=== PATIENT | female | born 1980 | race Two or more races ===

== ENCOUNTER 2021-05-28 04:10 | Day surgery (SDC) | payer OTHER ==
[2021-05-27 17:12] VITALS: BMI 26.6
[2021-05-28] MEDS ORDERED: MIDAZOLAM HCL 2 MG/2 ML SINGLE DOSE VIAL ONE (14:38)
[2021-05-28] MEDS ORDERED: LIDOCAINE HCL/PF 2% SDV 5ML VIAL ONE (14:39)
[2021-05-28] MEDS ORDERED: KETOROLAC TROMETHAMINE 30 MG/1 ML VIAL ONE (14:39)
[2021-05-28] MEDS ORDERED: PROPOFOL 20 ML ONE ×2 (14:50)
[2021-05-28] MEDS ORDERED: ceFAZolin SODIUM 1 GM VIAL ONE (14:59)
[2021-05-28] MEDS ORDERED: ceFAZolin SODIUM 1 GM VIAL IVPB ONE (15:00)
[2021-05-28] MEDS ORDERED: IBUPROFEN 800 MG/8 ML IJ IVPB PRN (15:12)
[2021-05-28] MEDS ORDERED: ONDANSETRON 4 MG/2 ML VIAL IVPUSH PRN (15:12)
[2021-05-28] MEDS ORDERED: IBUPROFEN 600 MG TABLET (FP) PO PRN (15:12)
[2021-05-28] MEDS ORDERED: oxyCODONE HCL 5 MG TABLET PO PRN (15:12)
[2021-05-28] MEDS ORDERED: ELECTROLYTE-148 SOLN 1,000 ML IV SCH (15:15)
[2021-05-28 17:40] VITALS: BP 100/60; PULSE 78; TEMP 96.8
== END 2021-05-28 17:45 | disposition home or self-care (01) ==
LOC: JASU-SURG 04:10
PROVIDERS: ATTEND Obstetrics & Gynecology
PROC: 10D17ZZ Extraction of Products of Conception, Retained, Via Natural or Artificial Opening (ICD-10-PCS; principal; 2021-05-28 14:00)
DX: O03.4 Incomplete spontaneous abortion without complication (principal)
CPT/HCPCS: 81025; 88305-TC; 94760